=== PATIENT | male | born 1975 | race Caucasian/White ===

== ENCOUNTER 2019-06-23 08:45 | Outpatient (RCR) | payer MEDICARE, SELFPAY ==
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
== END 2019-07-01 10:42 | disposition home or self-care (01) ==
LOC: ANHPT 08:45
PROVIDERS: PCP Internal Medicine Infectious Disease; Visit Provider Internal Medicine Infectious Disease
DX: R26.0 Ataxic gait (principal); M62.81 Muscle weakness (generalized); S06.2X6S Diffuse traumatic brain injury with loss of consciousness greater than 24 hours without return to pre-existing conscious level with patient surviving, sequela; V89.2XXS Person injured in unspecified motor-vehicle accident, traffic, sequela
CPT/HCPCS: 97163; 97165

== ENCOUNTER 2019-10-03 12:51 | Outpatient (RCR) | payer MEDICARE, SELFPAY ==
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
--- NOTE | 2019-11-07 11:31 | PCPTNOTE ---
Admitting Provider: Attending Provider: Sarkis Russell MD Patient:Russell Thakkar Date of :1975 Patient has not returned for any further treatments since 10/03/2019, therefore he will be discharged at this time. Patient?s initial visit was on 10/03/2019 13:15 and he had a total of 1 visits. The goals have not been met. Thank you for referring this patient to [facility]. Please review, sign, date and return this discharge summary CHARISSA. I have been updated about the patient's current status and I agree with discharge from the above service at this time. Referring Physician Date
== END 2019-11-10 08:40 | disposition home or self-care (01) ==
LOC: ANHPT 12:51
PROVIDERS: PCP Internal Medicine Infectious Disease; Visit Provider Orthopaedic Surgery
DX: S83.005D Unspecified dislocation of left patella, subsequent encounter (principal)
CPT/HCPCS: 97163

== ENCOUNTER 2023-09-06 14:02 | Outpatient (CLI) | payer MEDICARE, SELFPAY ==
[2023-09-06 14:18] LABS: Basophils Absolute Auto 0.1 K/mm3 (0.0-0.1); Basophils Percent Auto 0.7 % (0.2-1.2); Eosinophils Absolute Auto 0.2 K/mm3 (0-0.3); Eosinophils Percent Auto 1.8 % (0-4.4); Hematocrit 47.3 % (42.0-52.0); Hemoglobin 16.3 g/dL (14.0-18.0); Immature Granulocyte Absolute 0.03 K/mm3 (0.00-0.031); Immature Granulocyte Percent A 0.3 % (0-0.5); Lymphocytes Absolute Auto 2.91 K/mm3 (0.9-3.2); Mean Corpuscular HGB Conc 34.5 g/dl (32-36); Mean Corpuscular Hemoglobin 30.5 pg (26-34); Mean Corpuscular Volume 88.4 fl (80-100); Mean Platelet Volume 10.3 fl (7.4-10.4); Monocytes Absolute Auto 0.8 K/mm3 (0.1-0.6); Monocytes Percent Auto 8.3 % (2.6-8.5); Neutrophils Absolute Auto 5.4 K/mm3 (1.3-6.7); Neutrophils Percent Auto 57.9 % (45.5-73.1); Platelet Count Result 180 k/mm3 (150-375); Red Blood Count 5.35 M/mm3 (4.6-6.20); Red Cell Distribution Width 12.1 % (11.5-14.5); White Blood Count 9.4 K/mm3 (4.5-10.0)
[2023-09-06 16:27] LABS: Alanine Aminotransferase 26 U/L (6-50); Albumin Level 4.5 g/dL (3.5-5.1); Alkaline Phosphatase 63 U/L (38-126); Anion Gap 7 mmol/L (8-16); Aspartate Amino Transferase 35 U/L (17-59); Blood Urea Nitrogen 19 mg/dL (9-20); Calcium 9.4 mg/dL (8.4-10.2); Carbon Dioxide 30 mmol/L (22-30); Chloride 102 mmol/L (98-107); Estimated Glomerular Filt Rate > 60; Glucose 100 mg/dL (65-110); Potassium 3.7 mmol/L (3.4-5.0); Sodium 139 mmol/L (137-145)
[2023-09-08 12:00] LABS: Kappa\\Lambda Light Chains 1.51 (0.26-1.65); Lambda Light Chain 13.3 mg/L (5.7-26.3)
[2023-09-09 10:56] LABS: Albumin 4.7 g/dL (3.8-4.8); Alpha 1 Globulin 0.3 g/dL (0.2-0.3); Alpha 2 Globulin 0.6 g/dL (0.5-0.9); Beta 1 Globulin 0.5 g/dL (0.4-0.6); Gamma Globulin 0.8 g/dL (0.8-1.7); Protein, Total 7.2 g/dL (6.1-8.1)
== END 2023-09-06 14:03 | disposition home or self-care (01) ==
LOC: ANHLAB 14:04
PROVIDERS: PCP Internal Medicine Infectious Disease; Visit Provider Internal Medicine Hematology & Oncology
DX: D72.9 Disorder of white blood cells, unspecified (principal)
CPT/HCPCS: 36415; 80053; 83883; 84155; 84165; 85025

== ENCOUNTER 2023-11-23 08:32 | Outpatient (CLI) | payer MEDICARE, SELFPAY ==
[2023-11-23 08:47] LABS: Basophils Absolute Auto 0.1 K/mm3 (0.0-0.1); Eosinophils Absolute Auto 0.2 K/mm3 (0-0.3); Eosinophils Percent Auto 2.5 % (0-4.4); Hematocrit 48.5 % (42.0-52.0); Hemoglobin 16.3 g/dL (14.0-18.0); Immature Granulocyte Absolute 0.03 K/mm3 (0.00-0.031); Immature Granulocyte Percent A 0.5 % (0-0.5); Lymphocytes Absolute Auto 1.84 K/mm3 (0.9-3.2); Lymphocytes Percent Auto 31.2 % (18.3-44.2); Mean Corpuscular HGB Conc 33.6 g/dl (32-36); Mean Corpuscular Hemoglobin 30.2 pg (26-34); Mean Corpuscular Volume 89.8 fl (80-100); Mean Platelet Volume 10.2 fl (7.4-10.4); Monocytes Absolute Auto 0.8 K/mm3 (0.1-0.6); Monocytes Percent Auto 13.1 % (2.6-8.5); Neutrophils Percent Auto 51.7 % (45.5-73.1); Platelet Count Result 168 k/mm3 (150-375); Red Cell Distribution Width 12.1 % (11.5-14.5); White Blood Count 5.9 K/mm3 (4.5-10.0)
[2023-11-23 13:12] LABS: Alanine Aminotransferase 42 U/L (6-50); Albumin Level 4.7 g/dL (3.5-5.1); Alkaline Phosphatase 61 U/L (38-126); Anion Gap 7 mmol/L (4-12); Aspartate Amino Transferase 38 U/L (17-59); Bilirubin,Total 0.7 mg/dL (0.2-1.3); Blood Urea Nitrogen 25 mg/dL (9-20); Calcium 9.5 mg/dL (8.4-10.2); Carbon Dioxide 28 mmol/L (22-30); Chloride 104 mmol/L (98-107); Estimated Glomerular Filt Rate > 60; Glucose 101 mg/dL (65-110); Potassium 4.2 mmol/L (3.4-5.0); Sodium 139 mmol/L (137-145)
[2023-11-23 13:37] LABS: Immunoglobulin A 220 mg/dL (70-400); Immunoglobulin G 808 mg/dL (700-1600); Immunoglobulin M 59 mg/dL (40-230)
[2023-11-26 13:58] LABS: Kappa\\Lambda Light Chains 1.79 (0.26-1.65); Lambda Light Chain 12.6 mg/L (5.7-26.3)
[2023-11-27 02:33] LABS: Protein, Total 6.8 g/dL (6.1-8.1)
[2023-11-27 12:38] LABS: Albumin 4.2 g/dL (3.8-4.8); Alpha 1 Globulin 0.3 g/dL (0.2-0.3); Alpha 2 Globulin 0.6 g/dL (0.5-0.9); Beta 1 Globulin 0.5 g/dL (0.4-0.6); Gamma Globulin 0.8 g/dL (0.8-1.7)
== END 2023-11-23 08:33 | disposition home or self-care (01) ==
LOC: ANHLAB 08:34
PROVIDERS: PCP Internal Medicine Infectious Disease; Visit Provider Internal Medicine Hematology & Oncology
DX: D72.9 Disorder of white blood cells, unspecified (principal)
CPT/HCPCS: 36415; 80053; 82784; 83883; 84155; 84165; 85025